=== PATIENT | female | born 2000 | race Caucasian/White ===

== ENCOUNTER → 2020-05-23 13:11 | Outpatient (CLI) | payer OTHER, MEDICAID, SELFPAY | PROVIDERS: PCP Registered Nurse Diabetes Educator; Visit Provider Registered Nurse Diabetes Educator | DX: N89.8 Other specified noninflammatory disorders of vagina (principal) | CPT/HCPCS: 87210; 87220 ==

== ENCOUNTER → 2020-06-02 15:43 | Outpatient (CLI) | payer OTHER, MEDICAID, SELFPAY | PROVIDERS: PCP Registered Nurse Diabetes Educator; Visit Provider Physician Assistant | DX: R30.0 Dysuria (principal) | CPT/HCPCS: 87077; 87086; 87186 ==

== ENCOUNTER 2021-01-20 18:12 | Emergency (ER) | payer OTHER, MEDICAID, SELFPAY ==
[2021-01-20] VITALS (8 sets, daily range): BP systolic 119–135; BP diastolic 67–81; PULSE 91–104; RESP 14–20; TEMP 36.7; O2SAT 99–100; BMI 22.7
[2021-01-20 19:04] LABS: COVID19 -Nasal RAPID Negative (Negative)
--- NOTE | 2021-01-20 19:08 | ED.CHESTPAIN ---
HPI - Chest Pain General Chief Complaint: Chest Pain Stated Complaint: Chest Pain, Swollen Lymph Nodes, SOB Time Seen by Provider: 01/20/21 19:08 Source: patient and family Mode of arrival: Ambulatory History of Present Illness HPI narrative: 20-year-old woman with a history of bipolar disorder currently on aripiprazole bupropion and 3 days ago started on lamotrigine. Her psychiatrist told if she had any chest pain or palpitation she should go to the emergency room. Over the last 3 days concurrent with starting her new medication, she has complained of mild headache swollen lymph nodes and epigastric to central burning type chest pain that is not associated with food, absence of food, exertion. Not associated with dyspnea or palpitations. She is concerned but that is due to the Lamictal. She has no psychiatric complaints at this time Related Data Previous Rx's Medication Instructions Recorded aripiprazole 5 mg tablet (Abilify) 5 mg PO DAILY #90 tab 07/23/20 bupropion HCl 100 mg tablet,12 hr 100 mg PO BID #180 ea 07/23/20 sustained-release (Wellbutrin SR) Allergies Allergy/AdvReac Type Severity Reaction Status Date / Time No Known Drug Allergies Allergy Verified 01/20/21 18:50 Review of Systems Review of Systems Narrative: Remainder of complete review of systems is otherwise unremarkable except for that included in the HPI. Patient History Medical History Abnormal posture Anxiety (~2017) Bipolar disorder (~2018) Cervical somatic dysfunction Cranial somatic dysfunction Depression (~2017) Dyspareunia Nicotine dependence Segmental and somatic dysfunction of abdomen and other regions Septate hymen Family History Grandmother Cancer Social History Smoking Status: Current every day smoker Smoking Status: Current every day smoker alcohol intake frequency: other Substance Use Type: does not use Exam Narrative Exam Narrative: General: Healthy appearing, in no acute distress. Able to give a complete and coherent history. Well-nourished well-developed HEENT: Moist mucous membranes, normal sclera with reactive pupils, Neck: No JVD, supple Respiratory: Lungs are clear to auscultation, no wheezing no rales no rhonchi. Full and symmetrical air movement Cardiac: Regular rate and rhythm no murmurs no bruits Chest: No costochondral margin tenderness with palpation Abdomen: Soft, mild epigastric/subxiphoid tenderness, good bowel tones, no flank pain Skin: Warm and dry, no rashes Neurologic: Grossly neurologically intact with no obvious asymmetries or abnormalities Extremities: No trauma, well perfused Psych: Cooperative, appropriate insight and affect Initial Vital Signs Initial Vital Signs: Vital Signs Temperature 98.1 F 01/20/21 18:30 Pulse Rate 91 H 01/20/21 18:30 Respiratory Rate 17 01/20/21 18:30 Blood Pressure 135/81 01/20/21 18:30 Pulse Oximetry 99 01/20/21 18:30 Course Orders Ordered: Discontinued Medications Al Hydrox/Mg Hydrox/Simethicone 20 ml/ Lidocaine HCl 15 ml 0 ml PO NOW ONE Stop: 01/20/21 20:08 Last Admin: 01/20/21 20:28 Dose: 35 ml Documented by: RIAN Vital Signs Vital signs: Vital Signs - 8 hr 01/20/21 18:30 01/20/21 18:47 01/20/21 19:00 Temperature 98.1 F Pulse Rate 91 H 96 H 104 H Respiratory Rate 17 Blood Pressure 135/81 130/78 Pulse Oximetry 99 100 100 01/20/21 19:30 01/20/21 20:00 01/20/21 20:30 Temperature Pulse Rate 95 H 98 H 91 H Respiratory Rate 14 15 20 Blood Pressure 131/67 119/74 Pulse Oximetry 100 100 100 MDM - Chest Pain Lab Data Labs: Lab Results 01/20/21 Range/Units 18:40 SARS-CoV-2 (PCR) Negative (Negative) Discharge Plan Departure Patient Disposition: Home Clinical Impression: Atypical chest pain, Acute viral syndrome Instructions: DI for Viral Syndrome Activity Restrictions/Additional Instructions: Thank you for coming in today I think that your symptoms are more related to a mild virus than to side effects from the addition of lamotrigine. Lamotrigine would cause swollen lymph nodes and would typically give you that scratchiness down your throat into the upper portion of her chest. You do not have COVID today I would recommend that you continue the Lamictal for at least another week and see how your body continues to respond. I am reassured with the workup that we have done and the clinical exam done today. I wish you the best Prescriptions: No Action aripiprazole [Abilify] 5 mg tablet 5 mg PO DAILY Qty: 90 RF: 0 bupropion HCl [Wellbutrin SR] 100 mg tablet sustained-release 12 hr 100 mg PO BID Qty: 180 RF: 0 Referrals: Fausto Nye ARNP [Primary Care Provider] - Stand Alone Forms: Work Release Note
[2021-01-20] MEDS: MAG HYDROX/ALUMINUM/SIMETH SUS 20 ML, LIDOCAINE VISCOUS 2% 15 ML PO (20:28)
== END 2021-01-20 21:44 | disposition home or self-care (01) ==
PROVIDERS: Emergency Provider Emergency Medicine; PCP Registered Nurse Diabetes Educator
DX: R07.89 Other chest pain (principal); B34.9 Viral infection, unspecified; Z20.822 Contact with and (suspected) exposure to COVID-19
CPT/HCPCS: 87635; 93005; 99283; C9803

== ENCOUNTER 2022-03-01 02:34 | Emergency (ER) | payer OTHER, MEDICAID, SELFPAY ==
[2022-03-01 02:37] VITALS: BP 144/77; PULSE 98; RESP 18; TEMP 36.8; O2SAT 100; BMI 26.6
--- NOTE | 2022-03-01 02:39 | ED_ITS ---
HPI - Dental/Oral General Chief complaint: Dental/Oral Stated complaint: left side toothache Time Seen by Provider: 03/01/22 02:35 History of Present Illness HPI Narrative: 21-year-old female daily smoker presents with a few days of left lower dental pain and facial swelling. She denies any trauma or injury. She denies any fever, chills nor nausea or vomiting. She has significant pain and was scheduled to see her primary care provider later in the day but was having sufficient pain to warrant a visit to the emergency department tonight. She states that when she runs her tongue along the left lower molars she takes blood or some other bitter tasting liquid. She does have some mild left mandibular swelling. She denies any trouble breathing or swallowing. She is had no chest pain, shortness of breath or cough Related Data Previous Rx's Medication Instructions Recorded aripiprazole 5 mg tablet (Abilify) 5 mg PO DAILY #90 tabs 07/23/20 bupropion HCl 100 mg tablet,12 hr 100 mg PO BID #180 ea 07/23/20 sustained-release (Wellbutrin SR) ketorolac 10 mg tablet 10 mg PO Q6H PRN pain #14 tabs 03/01/22 penicillin V potassium 250 mg 500 mg PO Q6H 7 days #56 tabs 03/01/22 tablet Allergies Allergy/AdvReac Type Severity Reaction Status Date / Time No Known Drug Allergies Allergy Verified 01/20/21 18:50 Review of Systems Review of Systems Narrative: GENERAL: Denies chills, fatigue, malaise, fever, sweats. HEENT: See HPI RESPIRATORY: Denies dyspnea, cough, wheezing, hemoptysis, sputum. CARDIOVASCULAR: Denies chest pain, palpitations, orthopnea, edema, GASTROINTESTINAL: Denies nausea, vomiting, abdominal pain, diarrhea, constipation, melena. : Denies dysuria, frequency, incontinence, hematuria, urinary retention. MUSCULOSKELETAL: denies weakness, joint pain, or bony pain SKIN: Denies rash, skin lesions, or other NEUROLOGIC: Denies weakness, headache, numbness, change in speech, confusion, seizures, incoordination. PSYCHIATRIC: No concerning psychosocial issues. 12 point review of systems is negative except for those stated above Patient History Medical History Abnormal posture Anxiety (~2017) Bipolar disorder (~2018) Cervical somatic dysfunction Cranial somatic dysfunction Depression (~2017) Dyspareunia Nicotine dependence Segmental and somatic dysfunction of abdomen and other regions Septate hymen Family History Grandmother Cancer Social History Smoking Status: Current every day smoker Smoking Status: Current every day smoker alcohol intake frequency: other Substance Use Type: does not use Exam Narrative Exam Narrative: GEN: AOx3 and in mild distress EYES: Pupils are equal, round, and reactive to light and accommodation. Extraoccular muscles are intact bilaterally. There is no subconjunctival hemorr earl or exudate. ENT: Minimal fluctuance lateral to left lower premolars, purulent drainage to minimal palpation, no fluctuance noted, no indication for incision and drainage. There is some mild left submandibular swelling externally. Patient controlling secretions and managing airway without difficulty CHEST: Lungs are clear to auscultation bilaterally and free of wheezes, rales, or rhonchi. Heart rate is regular rhythm, there are no murmurs, clicks, rubs, or gallops. There is no chest wall tenderness. ABD: Abdomen is soft and nontender. There is no guarding or rebound. Bowel sounds are normal in all 4 quadrants. There is no mass or organomegaly. EXT: Full painless ROM of all extremities with no loss of sensation or strength. SKIN: Warm, pink, and dry. No erythema or rash Initial Vital Signs Initial Vital Signs: Vital Signs Temperature 98.2 F 03/01/22 02:37 Pulse Rate 98 H 03/01/22 02:37 Respiratory Rate 18 03/01/22 02:37 Blood Pressure 144/77 H 03/01/22 02:37 Pulse Oximetry 100 03/01/22 02:37 Oxygen Delivery Method 03/01/22 02:37 Course Orders Ordered: Discontinued Medications Oxycodone/Acetaminophen (Oxycodone/Apap 5/325 Prepack) 1 bottle MISC SEEINSTR ONE Stop: 03/01/22 02:47 Penicillin V Potassium (Penicillin 250 Mg Tab Prepack) 1 bottle MISC SEEINSTR ONE Stop: 03/01/22 02:47 Vital Signs Vital signs: Vital Signs - 8 hr 03/01/22 02:37 Temperature 98.2 F Pulse Rate 98 H Respiratory Rate 18 Blood Pressure 144/77 H Pulse Oximetry 100 Oxygen Delivery Method Room Air Discharge Plan Departure Patient Disposition: Home Clinical Impression: Abscess, dental Instructions: Tooth Abscess Activity Restrictions/Additional Instructions: *You have been diagnosed with [left lower dental abscess] *What to do: *Please continue to take your regular medications as directed. [x ] New medication prescriptions sent to your pharmacy: [ [facility] [ ] New medication written as a paper prescription [ ] No new medications given *Please follow up with your primary dental provider in 2-3 days, call for an appointment. Let them know you were seen in the Emergency Department and that we ask that you be seen in follow up. *Return to Emergency Department if you should have any new, worsening or concerning symptoms, such as [fever greater than 101 F, shaking chills, worsening pain, persistent vomiting or other bothersome symptoms] Prescriptions: New penicillin V potassium 250 mg tablet 500 mg PO Q6H 7 Days Qty: 56 0RF ketorolac 10 mg tablet 10 mg PO Q6H PRN (Reason: pain) Qty: 14 0RF No Action aripiprazole [Abilify] 5 mg tablet 5 mg PO DAILY Qty: 90 0RF bupropion HCl [Wellbutrin SR] 100 mg tablet sustained-release 12 hr 100 mg PO BID Qty: 180 0RF Referrals: Fausto Nye ARNP [Primary Care Provider] -
[2022-03-01] MEDS: PENICILLIN 250 MG TAB PREPACK 1 BOTTLE MISC (02:54)
[2022-03-01] MEDS: OXYCODONE/APAP 5/325 PREPACK 1 BOTTLE MISC (02:54)
== END 2022-03-01 02:57 | disposition home or self-care (01) ==
PROVIDERS: Emergency Provider Emergency Medicine; PCP Registered Nurse Diabetes Educator
DX: K04.7 Periapical abscess without sinus (principal)
CPT/HCPCS: 99281; 99283

== ENCOUNTER 2022-03-19 01:41 | Emergency (ER) | payer OTHER, MEDICAID, SELFPAY ==
[2022-03-19 01:48] VITALS: BP 125/77; PULSE 96; RESP 17; TEMP 36.7; O2SAT 100; BMI 26.6
[2022-03-19 02:23] LABS: Bacteria Urine None Seen; RBC Urine None Seen (0-5/HPF); WBC Urine 5-10/HPF (0-5/HPF)
--- NOTE | 2022-03-19 03:47 | ED_ITS ---
HPI - Female Genitourinary General Chief complaint: Urogenital-Female Stated complaint: UTI Time Seen by Provider: 03/19/22 03:46 Source: patient Mode of arrival: Ambulatory Limitations: no limitations History of Present Illness HPI Narrative: This is a 21-year-old female who takes medication for mood disorder. Patient states this evening around midnight she started having dysuria, since incomplete emptying and a little bit of suprapubic pressure. Patient denies fevers or chills. No nausea or vomiting. No chest pain or shortness of breath, she has some chronic back pain but no new flank pain. No abdominal pain otherwise. She is had some recent diarrhea but states that has been occurring since she had her gallbladder on November. No black or bloody stools. No new vaginal bleeding or discharge. She is sexually active but states uses implanted control and is monogamous with no additional partners. Patient denies other surgeries. No known drug allergies. Related Data Previous Rx's Medication Instructions Recorded aripiprazole 5 mg tablet (Abilify) 5 mg PO DAILY #90 tabs 07/23/20 bupropion HCl 100 mg tablet,12 hr 100 mg PO BID #180 ea 07/23/20 sustained-release (Wellbutrin SR) ketorolac 10 mg tablet 10 mg PO Q6H PRN pain #14 tabs 03/01/22 cephalexin 500 mg capsule 500 mg PO BID #10 caps 03/19/22 phenazopyridine 200 mg tablet 200 mg PO TID PRN pain 6 doses #6 03/19/22 (Pyridium) tabs Allergies Allergy/AdvReac Type Severity Reaction Status Date / Time No Known Drug Allergies Allergy Verified 01/20/21 18:50 Review of Systems Review of Systems ROS Unobtainable: All systems reviewed & are unremarkable except as noted in HPI and below Patient History Medical History Abnormal posture Anxiety (~2017) Bipolar disorder (~2018) Cervical somatic dysfunction Cranial somatic dysfunction Depression (~2017) Dyspareunia Nicotine dependence Segmental and somatic dysfunction of abdomen and other regions Septate hymen Family History Grandmother Cancer alcohol intake frequency: other Last Alcoholic Drink: none Substance Use Type: does not use Exam Narrative Exam Narrative: GENERAL: Alert and oriented x three, mild distress HEENT: Head normocephalic, atraumatic, EOMI, pupils reactive, face symmetric, moist mucous membranes NECK: Supple, full range of motion CARDIOVASCULAR: Regular rate and rhythm without murmurs, rubs or gallops. RESPIRATORY: Breath sounds equal bilaterally, no wheezes rales or rhonchi. ABDOMEN: Soft, nontender. Normoactive bowel sounds all 4 quadrants. No guarding or rebound, rigidity, no mass : No CVA tenderness EXTREMITIES: Normal range of motion, no clubbing or edema. Neurovascularly intact NEUROLOGICAL: Cranial nerves II through XII grossly intact. Moving all extremities SKIN: Warm, dry, no petechiae, no rashes or lesions. Initial Vital Signs Initial Vital Signs: Vital Signs Temperature 98.0 F 03/19/22 01:48 Pulse Rate 96 H 03/19/22 01:48 Respiratory Rate 17 03/19/22 01:48 Blood Pressure 125/77 03/19/22 01:48 Pulse Oximetry 100 03/19/22 01:48 Oxygen Delivery Method 03/19/22 01:48 Course Orders Ordered: ED Orders 03/19/22 01:50 Urine Culture Stat Urine Microscopic Stat Discontinued Medications Cephalexin HCl (Cephalexin 250 Mg Capsule) 500 mg PO NOW ONE Stop: 03/19/22 03:51 Last Admin: 03/19/22 03:53 Dose: 500 mg Documented By: TANISHA Phenazopyridine HCl (Phenazopyridine 100 Mg Tablet) 200 mg PO NOW ONE Stop: 03/19/22 03:51 Last Admin: 03/19/22 03:53 Dose: 200 mg Documented By: TANISHA Vital Signs Vital signs: Vital Signs - 8 hr 03/19/22 01:48 03/19/22 04:18 Temperature 98.0 F 96.7 F L Pulse Rate 96 H 78 Respiratory Rate 17 16 Blood Pressure 125/77 122/67 Pulse Oximetry 100 100 Oxygen Delivery Method Room Air Room Air MDM - Female Genitourinary Lab Data Labs: Lab Results 03/19/22 Range/Units 01:50 Urine RBC None seen (0-5/HPF) Urine WBC 5-10/hpf H (0-5/HPF) Urine Bacteria None seen (None) Ur Culture Indicated? Culture not indicate Micro UA Comment * Point of Care Testing Test Results Negative Urine Dip Bedside Urine Glucose Negative Bedside Urine Bilirubin - Negative Bedside Urine Ketone - Negative Urine Specific [place] 1.015 Bedside Urine Occult Blood - Negative Bedside Urine pH 7.0 Bedside Urine Protein - Negative Bedside Urine Urobilinogen +/- 1mg Bedside Urine Nitrite - Negative Bedside Urine Leukocytes - Negative Esterase MDM Narrative Medical decision making narrative: 21-year-old female with dysuria, urgency and sense of incomplete emptying with white blood cells in urine discussed plan for Pyridium dose oral antibiotic. If persistent symptoms should have further evaluation with pelvic exam. Discharge Plan Departure Patient Disposition: Home Clinical Impression: UTI (urinary tract infection) Instructions: DI for Urinary Tract Infection (UTI) Activity Restrictions/Additional Instructions: If your symptoms persist without any improvement with antibiotics and would recommend follow-up and pelvic exam to check for pelvic infections. Take antibiotics until completely gone. You may take Pyridium 1 tablet every 8 hours as needed. This medication will make your urine bright orange. Prescriptions printed. Please return for fevers, rapidly worsening abdominal back or flank pain, persistent vomiting, difficulty or inability to urinate, black or bloody stools or other new or concerning symptoms. Prescriptions: New cephalexin 500 mg capsule 500 mg PO BID Qty: 10 0RF phenazopyridine [Pyridium] 200 mg tablet 200 mg PO TID PRN (Reason: pain) Qty: 6 0RF No Action aripiprazole [Abilify] 5 mg tablet 5 mg PO DAILY Qty: 90 0RF bupropion HCl [Wellbutrin SR] 100 mg tablet sustained-release 12 hr 100 mg PO BID Qty: 180 0RF ketorolac 10 mg tablet 10 mg PO Q6H PRN (Reason: pain) Qty: 14 0RF Referrals: Fausto Nye ARNP [Primary Care Provider] - Visit Report Forms: Patient Portal/API
[2022-03-19] MEDS: cephALEXin 250 MG CAPSULE 500 MG PO (03:53)
[2022-03-19] MEDS: PHENAZOPYRIDINE 100 MG TABLET 200 MG PO (03:53)
[2022-03-19 04:18] VITALS: BP 122/67; PULSE 78; RESP 16; TEMP 35.9; O2SAT 100
== END 2022-03-19 04:19 | disposition home or self-care (01) ==
PROVIDERS: Emergency Provider Emergency Medicine; PCP Registered Nurse Diabetes Educator
DX: N39.0 Urinary tract infection, site not specified (principal); R19.7 Diarrhea, unspecified
CPT/HCPCS: 81003; 81015; 81025; 87086; 99283

== ENCOUNTER → 2022-05-31 17:12 | Outpatient (CLI) | payer OTHER, MEDICAID, SELFPAY | PROVIDERS: PCP Registered Nurse Diabetes Educator; Visit Provider Nurse Practitioner Family | DX: N39.0 Urinary tract infection, site not specified (principal) | CPT/HCPCS: 87086 ==

== ENCOUNTER 2022-07-24 12:41 | Emergency (ER) | payer OTHER, MEDICAID, SELFPAY ==
[2022-07-24 13:41] VITALS: BP 130/79; PULSE 93; RESP 16; TEMP 37; O2SAT 100; BMI 28.1
[2022-07-24 16:55] LABS: Ictotest Urine Negative (Negative)
[2022-07-24 16:56] LABS: Bacteria Urine Many (>30); Culture Indicated Urine Specimen Cultured; RBC Urine 1-5/HPF (0-5/HPF); Squamous Epithelial Cell Urine 1-5 /HPF (0-5/HPF); WBC Urine 10-30/HPF (0-5/HPF)
--- NOTE | 2022-07-24 17:40 | ED.FEMALEGU ---
HPI - Female Genitourinary <Luisa Tran PA-C - Last Filed: 07/24/22 17:44> General Chief complaint: Urogenital-Female Stated complaint: UTI symptoms Time Seen by Provider: 07/24/22 16:33 Source: patient Mode of arrival: Ambulatory History of Present Illness HPI Narrative: 22-year-old female with past medical history bipolar disorder, depression, anxiety presents to the ED with 2 days of urinary frequency, urinary urgency, dysuria. Patient denies nausea, vomiting, fever, chills, flank pain. Patient denies chest pain, shortness of breath, abdominal pain, lightheadedness, dizziness, syncope. Related Data Previous Rx's Medication Instructions Recorded aripiprazole 5 mg tablet (Abilify) 5 mg PO DAILY #90 tabs 07/23/20 bupropion HCl 100 mg tablet,12 hr 100 mg PO BID #180 ea 07/23/20 sustained-release (Wellbutrin SR) ketorolac 10 mg tablet 10 mg PO Q6H PRN pain #14 tabs 03/01/22 cephalexin 500 mg capsule 500 mg PO BID #10 caps 03/19/22 phenazopyridine 200 mg tablet 200 mg PO TID PRN pain 6 doses #6 03/19/22 (Pyridium) tabs phenazopyridine 200 mg tablet 200 mg PO TID 6 doses #6 tabs 05/31/22 (Pyridium) nitrofurantoin 100 mg PO Q12H 5 days #10 caps 07/24/22 monohydrate/macrocrystals 100 mg capsule (Macrobid) Allergies Allergy/AdvReac Type Severity Reaction Status Date / Time No Known Drug Allergies Allergy Verified 07/24/22 13:40 Review of Systems <Luisa Trna PA-C - Last Filed: 07/24/22 17:44> Review of Systems ROS Unobtainable: All systems reviewed & are unremarkable except as noted in HPI and below Constitutional Constitutional: Denies chills, Denies fatigue, Denies fever(s), Denies frequent falls, Denies lethargy and Denies weakness Eyes Eyes: Denies change in vision, Denies eye discharge, Denies irritation and Denies loss of vision ENT Ears, Nose, Mouth, and Throat: Denies change in voice, Denies dizziness, Denies neck pain, Denies sore throat and Denies throat swelling Cardiovascular Cardiovascular: Denies chest pain, Denies irregular heart rhythm, Denies lightheadedness, Denies palpitations, Denies dyspnea, Denies dyspnea on exertion and Denies orthopnea Respiratory Respiratory: Denies cough, Denies dyspnea, Denies dyspnea on exertion and Denies wheezing Gastrointestinal Gastrointestinal: Denies abdominal pain, Denies change in bowel habits, Denies diarrhea, Denies nausea and Denies vomiting Genitourinary Genitourinary: Denies hematuria, Reports dysuria, Denies flank pain, Denies urinary incontinence and Reports urinary urgency Comments: Urinary frequency Musculoskeletal Musculoskeletal: Denies back pain, Denies muscle weakness, Denies neck pain, Denies numbness and Denies tingling Integumentary/Breasts Skin/Breast: Denies pruritus, Denies erythema, Denies rash and Denies wounds Neurologic Neurologic: Denies behavioral changes, Denies confusion, Denies dizziness, Denies frequent falls, Denies loss of vision, Denies numbness, Denies tingling and Denies weakness Psychiatric Psychiatric: Denies anxiety, Denies behavioral changes, Denies confusion, Denies depression, Denies homicidal ideation and Denies suicidal ideation Endocrine Endocrine: Denies fatigue, Denies flushing and Denies palpitations Hematologic/Lymphatic Hematologic/Lymphatic: Denies easy bruising Allergic/Immunologic Allergic/Immunologic: Denies urticaria, Denies throat swelling and Denies wheezing Patient History <Luisa Tran PA-C - Last Filed: 07/24/22 17:44> Medical History Abnormal posture Anxiety (~2017) Bipolar disorder (~2018) Cervical somatic dysfunction Cranial somatic dysfunction Depression (~2017) Dyspareunia Nicotine dependence Segmental and somatic dysfunction of abdomen and other regions Septate hymen Family History Grandmother Cancer tobacco type: vaping alcohol intake frequency: other Last Alcoholic Drink: none Substance Use Type: marijuana Exam <Luisa Tran PA-C - Last Filed: 07/24/22 17:44> Narrative Exam Narrative: Const General:?cooperative, healthy appearing and comfortable HENHI Head:?normal to inspection Ears:?hearing grossly normal bilaterally Nose:?external nose normal Face and sinus:?normal facial exam and sinuses nontender Mouth:?oral mucosae normal Throat:?posterior oropharynx normal Eyes General:?appearance normal, both eyes and all related structures Neck Neck:?normal visual inspection and no lymphadenopathy noted Resp Effort & Inspection:?normal respiratory effort Auscultation:?clear to auscultation bilaterally Cardio Rate:?regular rate Rhythm:?regular rhythm GI Abdomen is soft, nondistended, nontender to palpation. There is no CVA tenderness. Neuro General:?patient alert, patient awake and patient oriented x3 Initial Vital Signs Initial Vital Signs: Vital Signs Temperature 98.6 F 07/24/22 13:41 Pulse Rate 93 H 07/24/22 13:41 Respiratory Rate 16 07/24/22 13:41 Blood Pressure 130/79 07/24/22 13:41 Pulse Oximetry 100 07/24/22 13:41 Oxygen Delivery Method 07/24/22 13:41 <Pawel Farley DO - Last Filed: 07/24/22 17:46> Initial Vital Signs Initial Vital Signs: Vital Signs Temperature 98.6 F 07/24/22 13:41 Pulse Rate 93 H 07/24/22 13:41 Respiratory Rate 16 07/24/22 13:41 Blood Pressure 130/79 07/24/22 13:41 Pulse Oximetry 100 07/24/22 13:41 Oxygen Delivery Method 07/24/22 13:41 Course <Luisa Tran PA-C - Last Filed: 07/24/22 17:44> Orders Ordered: ED Orders 07/24/22 14:58 Ictotest Urine Stat Urine Culture Stat Urine Microscopic Stat Vital Signs Vital signs: Vital Signs - 8 hr 07/24/22 13:41 Temperature 98.6 F Pulse Rate 93 H Respiratory Rate 16 Blood Pressure 130/79 Pulse Oximetry 100 Oxygen Delivery Method Room Air <Pawel Farley DO - Last Filed: 07/24/22 17:46> Orders Ordered: ED Orders 07/24/22 14:58 Ictotest Urine Stat Urine Culture Stat Urine Microscopic Stat Vital Signs Vital signs: Vital Signs - 8 hr 07/24/22 13:41 Temperature 98.6 F Pulse Rate 93 H Respiratory Rate 16 Blood Pressure 130/79 Pulse Oximetry 100 Oxygen Delivery Method Room Air MDM - Female Genitourinary <Luisa Tran PA-C - Last Filed: 07/24/22 17:44> Lab Data Labs: Lab Results 07/24/22 Range/Units 14:58 Ur Bilirubin Confirm Negative (Negative) Urine RBC 1-5/hpf (0-5/HPF) Urine WBC 10-30/hpf H (0-5/HPF) Ur Squamous Epith Cells 1-5 /hpf (0-5/HPF) Urine Bacteria Many (>30) H (None) Ur Culture Indicated? Specimen cultured Point of Care Testing Test Results Negative Urine Dip Bedside Urine Glucose Negative Bedside Urine Bilirubin + 1 Bedside Urine Ketone - Negative Urine Specific [place] 1.020 Bedside Urine Occult Blood +/- Bedside Urine pH 6.0 Bedside Urine Protein +/- 15 Bedside Urine Urobilinogen +/- 1mg Bedside Urine Nitrite - Negative Bedside Urine Leukocytes +/- 15 Esterase MDM Narrative Medical decision making narrative: 22-year-old female with past medical history bipolar disorder, depression, anxiety presents to the ED with 2 days of urinary frequency, urinary urgency, dysuria. Concern for UTI versus pyelonephritis versus other. UA was obtained and positive for a UTI. No flank pain, fever, chills, nausea, vomiting, CVA tenderness. Patient has a uncomplicated UTI. Will treat with Macrobid. ED return precautions were discussed with patient. Patient verbalized understanding. Medical records reviewed: Yes <Pawel Farley, - Last Filed: 07/24/22 17:46> Lab Data Labs: Lab Results 07/24/22 Range/Units 14:58 Ur Bilirubin Confirm Negative (Negative) Urine RBC 1-5/hpf (0-5/HPF) Urine WBC 10-30/hpf H (0-5/HPF) Ur Squamous Epith Cells 1-5 /hpf (0-5/HPF) Urine Bacteria Many (>30) H (None) Ur Culture Indicated? Specimen cultured Point of Care Testing Test Results Negative Urine Dip Bedside Urine Glucose Negative Bedside Urine Bilirubin + 1 Bedside Urine Ketone - Negative Urine Specific [place] 1.020 Bedside Urine Occult Blood +/- Bedside Urine pH 6.0 Bedside Urine Protein +/- 15 Bedside Urine Urobilinogen +/- 1mg Bedside Urine Nitrite - Negative Bedside Urine Leukocytes +/- 15 Esterase Discharge Plan Departure Patient Disposition: Home Clinical Impression: UTI (urinary tract infection) Instructions: DI for Urinary Tract Infection (UTI) Activity Restrictions/Additional Instructions: You were evaluated in the ED today for painful urination, urinary frequency and urgency. Your urine was positive for a urinary tract infection. You are being started on an antibiotic for 5 days. Please complete the full course of antibiotics. Return to the ED if you have worsening symptoms, persistent vomiting, fever, chills. Please follow-up with your PCP in a week. Prescriptions: New nitrofurantoin monohyd/m-cryst [Macrobid] 100 mg capsule 100 mg PO Q12H 5 Days Qty: 10 0RF Rx Instructions: must administer with a meal/food No Action phenazopyridine [Pyridium] 200 mg tablet 200 mg PO TID 0 Days Qty: 6 0RF aripiprazole [Abilify] 5 mg tablet 5 mg PO DAILY Qty: 90 0RF bupropion HCl [Wellbutrin SR] 100 mg tablet sustained-release 12 hr 100 mg PO BID Qty: 180 0RF ketorolac 10 mg tablet 10 mg PO Q6H PRN (Reason: pain) Qty: 14 0RF cephalexin 500 mg capsule 500 mg PO BID Qty: 10 0RF phenazopyridine [Pyridium] 200 mg tablet 200 mg PO TID PRN (Reason: pain) Qty: 6 0RF Referrals: Maame Sutton PA-C [Primary Care Provider] - Stand Alone Forms: Patient Portal/API, Work Release Note <Pawel Farley, DO - Last Filed: 07/24/22 17:46> Cosign ED Attending Cosdavidature Attestation: Dr Farley Co-Sign Statement: I was available for consultation during this patient's emergency department visit. This chart is signed by myself for administrative purposes only. I did not have direct contact with this patient during this visit. They were seen independently by the APC.
[2022-07-24 17:51] VITALS: BP 135/82; PULSE 88; RESP 16; O2SAT 98
== END 2022-07-24 17:53 | disposition home or self-care (01) ==
PROVIDERS: Emergency Medicine; Emergency Provider Student in an Organized Health Care Education/Training Program; PCP Physician Assistant
DX: N39.0 Urinary tract infection, site not specified (principal)
CPT/HCPCS: 81003; 81015; 81025; 87077; 87086; 87186; 99282

== ENCOUNTER 2022-08-16 18:49 | Emergency (ER) | payer OTHER, MEDICAID, SELFPAY ==
[2022-08-16 19:05] VITALS: BP 144/75; PULSE 83; RESP 20; TEMP 36.6; O2SAT 98; BMI 30.7
[2022-08-16 19:57] LABS: Bacteria Urine Moderate (10-30); Culture Indicated Urine Specimen Cultured; RBC Urine 1-5/HPF (0-5/HPF); Squamous Epithelial Cell Urine 1-5 /HPF (0-5/HPF); Transitional Epi Cells Urine 1-5/HPF (0-5/HPF); WBC Urine 5-10/HPF (0-5/HPF)
[2022-08-16 19:59] LABS: Urine Comments NOTE
--- NOTE | 2022-08-16 20:24 | ED.GENADULT ---
HPI - General Adult General Chief complaint: Urogenital-Female Stated complaint: UTI symptoms Time Seen by Provider: 08/16/22 20:01 Source: patient Mode of arrival: Ambulatory Limitations: no limitations History of Present Illness HPI narrative: Patient is a 22-year-old female who approximately 1 month ago was diagnosed with a urinary tract infection. Was placed on antibiotics. She states those symptoms have resolved but now this morning she started to have symptoms again to include urinary frequency and hesitancy and burning. No back pain. No fevers. No nausea vomiting. Related Data Previous Rx's Medication Instructions Recorded aripiprazole 5 mg tablet (Abilify) 5 mg PO DAILY #90 tabs 07/23/20 bupropion HCl 100 mg tablet,12 hr 100 mg PO BID #180 ea 07/23/20 sustained-release (Wellbutrin SR) ketorolac 10 mg tablet 10 mg PO Q6H PRN pain #14 tabs 03/01/22 cephalexin 500 mg capsule 500 mg PO BID #10 caps 03/19/22 phenazopyridine 200 mg tablet 200 mg PO TID PRN pain 6 doses #6 03/19/22 (Pyridium) tabs phenazopyridine 200 mg tablet 200 mg PO TID 6 doses #6 tabs 05/31/22 (Pyridium) nitrofurantoin 100 mg PO Q12H 5 days #10 caps 08/16/22 monohydrate/macrocrystals 100 mg capsule (Macrobid) Allergies Allergy/AdvReac Type Severity Reaction Status Date / Time No Known Drug Allergies Allergy Verified 08/16/22 19:12 Review of Systems Constitutional Constitutional: Reports system reviewed and no additional complaints, except as documented Gastrointestinal Gastrointestinal: Reports system reviewed and no additional complaints, except as documented Genitourinary Genitourinary: Reports system reviewed and no additional complaints, except as documented Musculoskeletal Musculoskeletal: Reports system reviewed and no additional complaints, except as documented Patient History Medical History Abnormal posture Anxiety (~2017) Bipolar disorder (~2018) Cervical somatic dysfunction Cranial somatic dysfunction Depression (~2017) Dyspareunia Nicotine dependence Segmental and somatic dysfunction of abdomen and other regions Septate hympavan Family History Grandmother Cancer Social History Smoking Status: Current every day smoker Smoking Status: Current every day smoker tobacco type: vaping alcohol intake frequency: other Substance Use Type: marijuana Exam Initial Vital Signs Initial Vital Signs: Vital Signs Temperature 97.8 F 08/16/22 19:05 Pulse Rate 83 08/16/22 19:05 Respiratory Rate 20 08/16/22 19:05 Blood Pressure 144/75 H 08/16/22 19:05 Pulse Oximetry 98 08/16/22 19:05 Oxygen Delivery Method 08/16/22 19:05 Resp Effort & Inspection: normal respiratory effort Cardio Rate: regular rate GI Inspection: normal to inspection Skin General: no rashes or lesions noted Course Orders Ordered: ED Orders 08/16/22 19:00 Urine Culture Stat Urine Microscopic Stat Discontinued Medications Nitrofurantoin Macrocrystals (Nitrofurantoin Er 100 Mg Capsule) 100 mg PO NOW ONE Stop: 08/16/22 20:26 Last Admin: 08/16/22 20:33 Dose: 100 mg Documented By: RB Ondansetron HCl (Ondansetron 4 Mg/2 Ml Inj) 4 mg IV NOW PRN PRN Reason: Nausea And Vomiting Ondansetron HCl (Ondansetron 4 Mg Odt) 4 mg SL NOW PRN PRN Reason: Nausea And Vomiting Vital Signs Vital signs: Vital Signs - 8 hr 08/16/22 19:05 08/16/22 20:36 Temperature 97.8 F Pulse Rate 83 82 Respiratory Rate 20 18 Blood Pressure 144/75 H 142/68 H Pulse Oximetry 98 97 Oxygen Delivery Method Room Air Room Air Medical Decision Making Medical Records Medical records reviewed: Yes I reviewed the patient's medical records. Lab Data Lab results reviewed: Yes I reviewed the patient's lab results. Labs: Lab Results 08/16/22 Range/Units 19:00 Urine RBC 1-5/hpf (0-5/HPF) Urine WBC 5-10/hpf H (0-5/HPF) Ur Squamous Epith Cells 1-5 /hpf (0-5/HPF) Ur Transition Epith Cell 1-5/hpf (0-5/HPF) Urine Bacteria Moderate (10-30) H (None) Ur Culture Indicated? Specimen cultured Micro UA Comment Note MDM Narrative Medical decision making narrative: One month ago the patient did have urinary tract infection that was pansensitive coli. She was on Macrobid she states that care for symptoms. U urinalysis today is concerning for UTI. Low suspicion for pyelo. Given her prior urine culture will treat with Macrobid once again. Urine culture was pending today patient was given return precautions. She expressed understanding agreement. Discharge Plan Departure Patient Disposition: Home Clinical Impression: UTI (urinary tract infection) Instructions: DI for Urinary Tract Infection (UTI) Activity Restrictions/Additional Instructions: A prescription for antibiotics was sent to [facility]. Please start taking them as directed. The urine culture was pending at the time of your discharge we will contact you if we need to change any antibiotics. Return to the emergency department for any new or worsening symptoms. Prescriptions: New nitrofurantoin monohyd/m-cryst [Macrobid] 100 mg capsule 100 mg PO Q12H 5 Days Qty: 10 0RF Rx Instructions: must administer with a meal/food No Action phenazopyridine [Pyridium] 200 mg tablet 200 mg PO TID 0 Days Qty: 6 0RF aripiprazole [Abilify] 5 mg tablet 5 mg PO DAILY Qty: 90 0RF bupropion HCl [Wellbutrin SR] 100 mg tablet sustained-release 12 hr 100 mg PO BID Qty: 180 0RF ketorolac 10 mg tablet 10 mg PO Q6H PRN (Reason: pain) Qty: 14 0RF cephalexin 500 mg capsule 500 mg PO BID Qty: 10 0RF phenazopyridine [Pyridium] 200 mg tablet 200 mg PO TID PRN (Reason: pain) Qty: 6 0RF Referrals: Maame Sutton PA-C [Primary Care Provider] - Stand Alone Forms: Patient Portal/API
[2022-08-16] MEDS: NITROFURANTOIN ER 100 MG CAPSULE PO (20:33)
[2022-08-16 20:36] VITALS: BP 142/68; PULSE 82; RESP 18; O2SAT 97
--- NOTE | 2022-08-17 15:18 | PC.NURSE ---
Patient called in to inquire about RX on discharge. [facility] did not receive prescription. Prescription called into [facility].
== END 2022-08-16 20:36 | disposition home or self-care (01) ==
PROVIDERS: Emergency Provider Emergency Medicine; PCP Physician Assistant
DX: N39.0 Urinary tract infection, site not specified (principal)
CPT/HCPCS: 81003; 81015; 87086; 99283

== ENCOUNTER 2022-10-09 05:11 | Emergency (ER) | payer OTHER, MEDICAID, SELFPAY ==
[2022-10-09 05:23] VITALS: BP 132/75; PULSE 120; RESP 18; TEMP 38.3; O2SAT 98; BMI 28.1
[2022-10-09] MEDS: IBUPROFEN 400 MG TABLET 800 MG PO (05:34)
--- NOTE | 2022-10-09 05:46 | ED_ITS ---
HPI - General Adult General Chief complaint: Upper Respiratory Symptoms Stated complaint: chest pain when coughing covid + Time Seen by Provider: 10/09/22 05:31 Source: patient Mode of arrival: Ambulatory History of Present Illness HPI narrative: 22 you woman with history of depression presents with 4-5 days of upper respiratory symptoms, cough, fever in central chest pain when she is coughing. She did note that ibuprofen helped but she only took this on the 1st day. She did a home COVID test that was positive yesterday comes in today because she is concerned that her symptoms have not completely resolved. Related Data Previous Rx's Medication Instructions Recorded aripiprazole 5 mg tablet (Abilify) 5 mg PO DAILY #90 tabs 07/23/20 bupropion HCl 100 mg tablet,12 hr 100 mg PO BID #180 ea 07/23/20 sustained-release (Wellbutrin SR) ketorolac 10 mg tablet 10 mg PO Q6H PRN pain #14 tabs 03/01/22 cephalexin 500 mg capsule 500 mg PO BID #10 caps 03/19/22 phenazopyridine 200 mg tablet 200 mg PO TID PRN pain 6 doses #6 03/19/22 (Pyridium) tabs phenazopyridine 200 mg tablet 200 mg PO TID 6 doses #6 tabs 05/31/22 (Pyridium) benzonatate 200 mg capsule 200 mg PO BID-TID PRN cough #14 10/09/22 caps Allergies Allergy/AdvReac Type Severity Reaction Status Date / Time No Known Drug Allergies Allergy Verified 08/16/22 19:12 Review of Systems Review of Systems Narrative: Pertinent positive and negative findings as per HPI Patient History Medical History Abnormal posture Anxiety (~2017) Bipolar disorder (~2018) Cervical somatic dysfunction Cranial somatic dysfunction Depression (~2017) Dyspareunia Nicotine dependence Segmental and somatic dysfunction of abdomen and other regions Septate hymen Family History Grandmother Cancer Social History Smoking Status: Current every day smoker Smoking Status: Current every day smoker tobacco type: vaping alcohol intake frequency: other Substance Use Type: marijuana Exam Initial Vital Signs Initial Vital Signs: Vital Signs Temperature 101 F H 10/09/22 05:23 Pulse Rate 120 H 10/09/22 05:23 Respiratory Rate 18 10/09/22 05:23 Blood Pressure 132/75 10/09/22 05:23 Pulse Oximetry 98 10/09/22 05:23 Oxygen Delivery Method Room Air 10/09/22 05:23 General: Healthy appearing, in no acute distress. Able to give a complete and coherent history. Well-nourished well-developed HEENT: Moist mucous membranes, normal sclera with reactive pupils, Neck: No cervical adenopathy, supple Respiratory: Lungs are clear to auscultation, no wheezing no rales no rhonchi. Full and symmetrical air movement Cardiac: Regular rate and rhythm no murmurs no bruits Abdomen: Soft, nontender, good bowel tones, no flank pain Skin: Warm and dry, no rashes Neurologic: Grossly neurologically intact with no obvious asymmetries or abnormalities Extremities: No trauma, well perfused Psych: Cooperative, appropriate insight and affect Course Orders Ordered: ED Orders 10/09/22 05:35 Covid-19 + FLU A/B + RSV - PCR Stat Discontinued Medications Acetaminophen (Acetaminophen 325 Mg Tablet) 975 mg PO NOW ONE Stop: 10/09/22 05:29 Last Admin: 10/09/22 06:10 Dose: 975 mg Documented By: ANGEL Benzonatate (Benzonatate 100 Mg Capsule) 100 mg PO NOW ONE Stop: 10/09/22 05:55 Last Admin: 10/09/22 06:10 Dose: 100 mg Documented By: ANGEL Ibuprofen (Ibuprofen 400 Mg Tablet) 800 mg PO NOW ONE Stop: 10/09/22 05:29 Last Admin: 10/09/22 05:34 Dose: 800 mg Documented By: ANGEL Vital Signs Vital signs: Vital Signs - 8 hr 10/09/22 05:23 Temperature 101 F H Pulse Rate 120 H Respiratory Rate 18 Blood Pressure 132/75 Pulse Oximetry 98 Oxygen Delivery Method Room Air Medical Decision Making Lab Data Labs: Lab Results 10/09/22 Range/Units 05:35 SARS-CoV-2 (PCR) Negative (Negative) Influenza A (RT-PCR) Flu a negative (NEGATIVE) Influenza B (RT-PCR) Flu b negative (NEGATIVE) RSV (PCR) Negative (Negative) MDM Narrative Medical decision making narrative: CC: Cough, central chest pain with cough Complicating co-morbidities: Depression Data collected from: patient, Medical records reviewed: ER notes with minor symptom complaints as well as [facility] practice note from 2020 are reviewed. Differential considered: Upper respiratory infection, pneumothorax, bacterial pneumonia, pleurisy, costochondritis Exam documented above, pertinent findings include: Completely normal exam with no reproducible pain palpating along the sternum, no wheezing and no rhonchi. Lab Test results independently reviewed as above. Pertinent findings: Negative COVID, influenza and RSV Independently reviewed EKG as above Discussion: 22-year-old woman with upper respiratory symptoms consistent with viral infection. Central chest pain with coughing. Recommended ibuprofen and prescription for Tessalon Perles given. There is no indication of pneumothorax or pneumonia. Findings reviewed with her as well as anticipated course of resolution. Questions are answered and she is safe for discharge home Discharge Plan Departure Patient Disposition: Home Clinical Impression: Acute viral syndrome, Pleurisy Instructions: DI for Viral Upper Respiratory Infection -- Adult, DI for Pleurisy Activity Restrictions/Additional Instructions: Thank you for coming in today You have a viral syndrome and will be feeling better in a few days. The PCR test that we did in the emergency room today was not positive for COVID, influenza or respiratory syncytial virus. You are likely ill from 1 of the other viruses. The treatment for all of these is going to be the same. Using 400 mg of ibuprofen (2 [id number] pills) and 1 Tylenol every 6 hours can be very helpful in controlling pain. Using the benzonatate capsules to help control cough may also help with the pain If you find that you are getting worse or develop any new symptoms, please feel free to return to the emergency department for further evaluation. Prescriptions: New benzonatate 200 mg capsule 200 mg PO BID-TID PRN (Reason: cough) Qty: 14 0RF No Action phenazopyridine [Pyridium] 200 mg tablet 200 mg PO TID 0 Days Qty: 6 0RF aripiprazole [Abilify] 5 mg tablet 5 mg PO DAILY Qty: 90 0RF bupropion HCl [Wellbutrin SR] 100 mg tablet sustained-release 12 hr 100 mg PO BID Qty: 180 0RF ketorolac 10 mg tablet 10 mg PO Q6H PRN (Reason: pain) Qty: 14 0RF cephalexin 500 mg capsule 500 mg PO BID Qty: 10 0RF phenazopyridine [Pyridium] 200 mg tablet 200 mg PO TID PRN (Reason: pain) Qty: 6 0RF Referrals: Maame Sutton PA-C [Primary Care Provider] - Stand Alone Forms: Patient Portal/API, Work Release Note
[2022-10-09] MEDS: BENZONATATE 100 MG CAPSULE PO (06:10)
[2022-10-09] MEDS: ACETAMINOPHEN 325 MG TABLET 975 MG PO (06:10)
[2022-10-09 06:24] LABS: Influenza A - CEPHEID Flu A NEGATIVE (NEGATIVE); Influenza B - CEPHEID Flu B NEGATIVE (NEGATIVE); Respiratory Syncytial Virus Negative (Negative)
[2022-10-09 06:26] LABS: COVID-19 CEPHEID 4-PLEX PCR Negative (Negative)
[2022-10-09 07:01] VITALS: TEMP 37.1
== END 2022-10-09 07:02 | disposition home or self-care (01) ==
PROVIDERS: Emergency Provider Emergency Medicine; PCP Physician Assistant
DX: B34.9 Viral infection, unspecified (principal); R09.1 Pleurisy
CPT/HCPCS: 0241U; 99283

== ENCOUNTER 2022-10-25 15:48 | Emergency (ER) | payer OTHER, MEDICAID, SELFPAY ==
[2022-10-25 16:36] VITALS: BP 132/78; PULSE 86; RESP 16; TEMP 36.8; O2SAT 100; BMI 28.1
--- NOTE | 2022-10-25 16:51 | ED.FEMALEGU ---
HPI - Female Genitourinary <Gurmeet Chau PA-C - Last Filed: 10/25/22 20:07> General Chief complaint: Urogenital-Female Stated complaint: Thinks UTI Time Seen by Provider: 10/25/22 16:44 Source: patient Mode of arrival: Ambulatory History of Present Illness HPI Narrative: This is a 22-year-old female presents emergency department due to 3 days of dysuria as well as urinary frequency. States she has a frequent history of UTIs and has been referred to urologist to be seen in a couple of weeks. Denies any fevers, lower back pain, nausea, vomiting, or any other concerning signs or symptoms. Related Data Previous Rx's Medication Instructions Recorded aripiprazole 5 mg tablet (Abilify) 5 mg PO DAILY #90 tabs 07/23/20 bupropion HCl 100 mg tablet,12 hr 100 mg PO BID #180 ea 07/23/20 sustained-release (Wellbutrin SR) ketorolac 10 mg tablet 10 mg PO Q6H PRN pain #14 tabs 03/01/22 cephalexin 500 mg capsule 500 mg PO BID #10 caps 03/19/22 phenazopyridine 200 mg tablet 200 mg PO TID PRN pain 6 doses #6 03/19/22 (Pyridium) tabs phenazopyridine 200 mg tablet 200 mg PO TID 6 doses #6 tabs 05/31/22 (Pyridium) benzonatate 200 mg capsule 200 mg PO BID-TID PRN cough #14 10/09/22 caps nitrofurantoin 100 mg PO Q12H 5 days #10 caps 10/25/22 monohydrate/macrocrystals 100 mg capsule (Macrobid) Allergies Allergy/AdvReac Type Severity Reaction Status Date / Time No Known Drug Allergies Allergy Verified 08/16/22 19:12 Review of Systems <Gurmeet Chau PA-C - Last Filed: 10/25/22 20:07> Review of Systems Narrative: GENERAL: Denies chills, fatigue, malaise, fever, sweats. HEENT: Denies sinus pain, ear pain, sore throat, difficulty swallowing, dizziness. RESPIRATORY: Denies dyspnea, cough, wheezing, hemoptysis, sputum. CARDIOVASCULAR: Denies chest pain, palpitations, orthopnea, edema, GASTROINTESTINAL: Denies nausea, vomiting, abdominal pain, diarrhea, constipation, melena. : Reports urinary frequency and dysuria, denies, incontinence, hematuria, urinary retention. MUSCULOSKELETAL: denies weakness, joint pain, or bony pain SKIN: Denies rash, skin lesions, or other NEUROLOGIC: Denies weakness, headache, numbness, change in speech, confusion, seizures, incoordination. PSYCHIATRIC: No concerning psychosocial issues. 12 point review of systems is negative except for those stated above Patient History <Gurmeet Chau PA-C - Last Filed: 10/25/22 20:07> Medical History Abnormal posture Anxiety (~2017) Bipolar disorder (~2018) Cervical somatic dysfunction Cranial somatic dysfunction Depression (~2017) Dyspareunia Nicotine dependence Segmental and somatic dysfunction of abdomen and other regions Septate hymen Family History Grandmother Cancer tobacco type: vaping alcohol intake frequency: other Last Alcoholic Drink: none Substance Use Type: does not use Exam <Gurmeet Chau PA-C - Last Filed: 10/25/22 20:07> Narrative Exam Narrative: GENERAL: Well-developed patient, in mild distress. HEAD: Atraumatic. Normocephalic. EYES: Pupils equal round and reactive. Extraocular motions intact. No scleral icterus. No injection or drainage. ENT: Nose without bleeding, purulent drainage. Throat without erythema, tonsillar hypertrophy or exudate. Airway patent. NECK: Trachea midline. Non tender CARDIOVASCULAR: Regular rate and rhythm without murmurs, gallops, or rubs. RESPIRATORY: Clear to auscultation. Breath sounds equal bilaterally. No wheezes, rales, or rhonchi. GASTROINTESTINAL: Abdomen soft, non-tender, nondistended. EXTREMITIES: No edema or joint tenderness. BACK: Nontender without deformity or crepitance. No flank tenderness. NEURO: AOx3. SKIN: No rash or erythema of visible areas Initial Vital Signs Initial Vital Signs: Vital Signs Temperature 98.2 F 10/25/22 16:36 Pulse Rate 86 10/25/22 16:36 Respiratory Rate 16 10/25/22 16:36 Blood Pressure 132/78 10/25/22 16:36 Pulse Oximetry 100 10/25/22 16:36 Oxygen Delivery Method Room Air 10/25/22 16:36 <Pawel Farley DO - Last Filed: 10/26/22 07:22> Initial Vital Signs Initial Vital Signs: Vital Signs Temperature 98.2 F 10/25/22 16:36 Pulse Rate 86 10/25/22 16:36 Respiratory Rate 16 10/25/22 16:36 Blood Pressure 132/78 10/25/22 16:36 Pulse Oximetry 100 10/25/22 16:36 Oxygen Delivery Method Room Air 10/25/22 16:36 Course <Gurmeet Chau PA-C - Last Filed: 10/25/22 20:07> Orders Ordered: ED Orders 10/25/22 16:30 Urinalysis and Microscopic Stat Vital Signs Vital signs: Vital Signs - 8 hr 10/25/22 16:36 Temperature 98.2 F Pulse Rate 86 Respiratory Rate 16 Blood Pressure 132/78 Pulse Oximetry 100 Oxygen Delivery Method Room Air <Pawel Farley DO - Last Filed: 10/26/22 07:22> Orders Ordered: ED Orders 10/25/22 16:30 Urinalysis and Microscopic Stat Vital Signs Vital signs: Vital Signs - 8 hr 10/25/22 16:36 Temperature 98.2 F Pulse Rate 86 Respiratory Rate 16 Blood Pressure 132/78 Pulse Oximetry 100 Oxygen Delivery Method Room Air MDM - Female Genitourinary <Gurmeet Chau PA-C - Last Filed: 10/25/22 20:07> Lab Data Labs: Lab Results 10/25/22 Range/Units 16:30 Urine Color [place] Urine Appearance Slightly cloudy Urine pH TNP Ur Specific [place] TNP Urine Protein TNP Urine Glucose (UA) TNP Urine Ketones TNP Urine Occult Blood TNP Urine Nitrate TNP Urine Bilirubin TNP Urine Urobilinogen TNP Ur Leukocyte Esterase TNP Urine RBC 0-1/hpf (0-5/HPF) Urine WBC 0-1/hpf (0-5/HPF) Ur Squamous Epith Cells 0-1 /hpf (0-5/HPF) Urine Bacteria Occasional (0-1) (None) Ur Culture Indicated? Cult not indicated Point of Care Testing Test Results Negative MDM Narrative Medical decision making narrative: MDM * differential diagnosis includes but not limited to UTI, vaginitis, chlamydia, gonorrhea, pyelonephritis * Prior records reviewed: Patient was last seen for UTI but 3 months ago. History of recurrent UTIs. Patient was treated with the Macrobid. Culture from 3 months ago showed mixed loreta. * My lab interpretation: Unable to run urinalysis and sent for culture as patient took Pyridium prior to arrival. * My imgaing interpretation: None obtained * Clinical Decision Rules/Scores evaluated: None * Independent discussions with: None ED Course: This is a 22-year-old female presents with signs and symptoms suspected UTI. No systemic symptoms or lower back pain concerning for pyelonephritis. We will treat with oral antibiotics as previously. She already has an established urologist that she was seen a couple of weeks. Unable to analyze the urine as she took Pyridium but we will treat based on symptoms. Shared Decision Making: Discussed plan with patient who is comfortable with the plan. Social Considerations: None Disposition: Discharged to home <Pawel Farley DO - Last Filed: 10/26/22 07:22> Lab Data Labs: Lab Results 10/25/22 Range/Units 16:30 Urine Color [place] Urine Appearance Slightly cloudy Urine pH TNP Ur Specific [place] TNP Urine Protein TNP Urine Glucose (UA) TNP Urine Ketones TNP Urine Occult Blood TNP Urine Nitrate TNP Urine Bilirubin TNP Urine Urobilinogen TNP Ur Leukocyte Esterase TNP Urine RBC 0-1/hpf (0-5/HPF) Urine WBC 0-1/hpf (0-5/HPF) Ur Squamous Epith Cells 0-1 /hpf (0-5/HPF) Urine Bacteria Occasional (0-1) (None) Ur Culture Indicated? Cult not indicated Point of Care Testing Test Results Negative Discharge Plan Departure Patient Disposition: Home Clinical Impression: Dysuria Instructions: DI for Dysuria -- Adult Activity Restrictions/Additional Instructions: Thank you for coming to the [facility] Emergency Department today. Based on your symptoms it sounds like you have a urinary tract infection. We are unable to analyze it due to the Pyridium took earlier but we will treat based on your symptoms. Please take the oral antibiotics as prescribed to follow up with the urologist to determine the cause of these frequent UTIs. I sent your medication to [facility]. I hope you feel better soon. Prescriptions: New nitrofurantoin monohyd/m-cryst [Macrobid] 100 mg capsule 100 mg PO Q12H 5 Days Qty: 10 0RF Rx Instructions: must administer with a meal/food No Action phenazopyridine [Pyridium] 200 mg tablet 200 mg PO TID 0 Days Qty: 6 0RF aripiprazole [Abilify] 5 mg tablet 5 mg PO DAILY Qty: 90 0RF bupropion HCl [Wellbutrin SR] 100 mg tablet sustained-release 12 hr 100 mg PO BID Qty: 180 0RF ketorolac 10 mg tablet 10 mg PO Q6H PRN (Reason: pain) Qty: 14 0RF cephalexin 500 mg capsule 500 mg PO BID Qty: 10 0RF phenazopyridine [Pyridium] 200 mg tablet 200 mg PO TID PRN (Reason: pain) Qty: 6 0RF benzonatate 200 mg capsule 200 mg PO BID-TID PRN (Reason: cough) Qty: 14 0RF Referrals: Maame Sutton PA-C [Primary Care Provider] - Stand Alone Forms: Patient Portal/API <Pawel Farley, DO - Last Filed: 10/26/22 07:22> [facility]: Dr Farley Co-Sign Statement: I was available for consultation during this patient's emergency department visit. This chart is signed by myself for administrative purposes only. I did not have direct contact with this patient during this visit. They were seen independently by the APC.
[2022-10-25 17:39] LABS: Appearance Urine UA Slightly Cloudy; Color Urine UA Orange
[2022-10-25 17:41] LABS: Bacteria Urine Occasional (0-1); Culture Indicated Urine Cult Not Indicated; RBC Urine 0-1/HPF (0-5/HPF); Squamous Epithelial Cell Urine 0-1 /HPF (0-5/HPF); WBC Urine 0-1/HPF (0-5/HPF)
== END 2022-10-25 18:20 | disposition home or self-care (01) ==
PROVIDERS: Emergency Medicine; Emergency Provider Physician Assistant Medical; PCP Physician Assistant
DX: R30.0 Dysuria (principal)
CPT/HCPCS: 81001; 81025; 99281; 99282

== ENCOUNTER → 2023-10-14 12:28 | Outpatient (CLI) | payer OTHER, SELFPAY | PROVIDERS: PCP Physician Assistant; Visit Provider Physician Assistant | DX: R35.0 Frequency of micturition (principal) | CPT/HCPCS: 87086 ==

== ENCOUNTER → 2024-11-30 13:28 | Outpatient (CLI) | payer OTHER, SELFPAY ==
[2024-11-30 15:12] LABS: Urine N gonorrhoeae NOT DETECTED
[2024-11-30 15:15] LABS: Urine Chlamydia NOT DETECTED
== END ==
PROVIDERS: PCP Physician Assistant; Visit Provider Nurse Practitioner Family
DX: N39.0 Urinary tract infection, site not specified (principal)
CPT/HCPCS: 87086; 87210; 87491; 87591